=== PATIENT | female | born 1990 | race American Indian/Alaskan Native ===

== ENCOUNTER 2018-06-19 14:26 | Emergency (ER) | payer MEDICAID ==
--- NOTE | 2018-06-19 14:49 | Emergency Department Report ---
Chief Complaint: Seizure Stated Complaint: HEADACHE EXTREME/SEIZURES Time Seen by Provider: 06/19/18 14:46 - HPI History of Present Illness: HEADACHE AND SZ TODAY SZ AT 0400 2005 STARTED SZ- NOT SURE WHY SHE HAS THEM WAS NOT INCONT. NO N/V/D L TEMPORAL AREA NO FOCAL NEURO DEF RX NONE THC NO DRUGS NO ETOH PMH SZ LMP 1W AGO PSH NONE MSE COMPLETED AMBULATORY W NO FOCAL NEURO DEF MSE screening note: Focused history and physical exam performed. Due to findings the following was ordered: ED Disposition for MSE Condition: Stable
[2018-06-19 15:33] LABS: Bacteria,Urine 4+ /HPF (Negative); Bilirubin,Urine NEG (Negative); Blood,Urine NEG (Negative); Color,Urine Yellow (Yellow); Hyaline Casts,Urine 1 /LPF; Mucus,Urine 3+ /HPF; Protein,Urine <15 mg/dL mg/dL (Negative); Urobilinogen,Urine < 2.0 mg/dL (<2.0)
[2018-06-19 15:35] LABS: HCG Qualitative,Urine Negative (Negative)
[2018-06-19 15:55] LABS: Hematocrit 40.1 % (30.3-42.9); Hemoglobin 13.3 gm/dl (10.1-14.3); Mean Corpuscular HGB Conc 33 % (30-34); Mean Corpuscular Volume 92 fl (79-97); Platelet Count 275 K/mm3 (140-440); Red Blood Count 4.35 M/mm3 (3.65-5.03); Red Cell Distribution Width 13.4 % (13.2-15.2)
[2018-06-19] MEDS ORDERED: REGLAN IV ONE (16:04)
[2018-06-19] MEDS ORDERED: MACROBID PO ONE (16:04)
[2018-06-19] MEDS ORDERED: KEPPRA 500 MG/NS 0.82% 100 ML 500 MG/100 ML BAG IV ONE (16:04)
[2018-06-19 16:16] LABS: Alanine Aminotransferase 5 units/L (7-56); Albumin 4.2 g/dL (3.9-5); BUN/Creatinine Ratio 17; Blood Urea Nitrogen 10 mg/dL (7-17); Calcium 9.1 mg/dL (8.4-10.2); Hemolysis Index 4
--- NOTE | 2018-06-19 16:35 | Cat Scan Report ---
FINAL REPORT EXAM: CT HEAD/BRAIN WO CON HISTORY: Headache. Seizure. TECHNIQUE: CT of the Head without IV contrast. PRIORS: None currently available. FINDINGS: There is no evidence for acute ischemia. There is no hemorrhage. There is no midline shift. There is no hydrocephalus. There is no mass. Age appropriate izaguirre-white matter attenuation is noted. There is no calvarial fracture. The temporal bones demonstrate aerated mastoid air cells. The middle ears appear unremarkable. Paranasal sinuses are unremarkable. Globes are intact. IMPRESSION: No acute intracranial findings.
[2018-06-19] MEDS ORDERED: KEPPRA 500 MG in D5W 100 ML IV ONE (17:00)
--- NOTE | 2018-06-19 17:46 | Emergency Department Report ---
ED Seizure HPI - General Chief Complaint: Seizure Stated Complaint: HEADACHE EXTREME/SEIZURES Time Seen by Provider: 06/19/18 14:46 Source: patient Mode of arrival: Ambulatory Limitations: No Limitations - History of Present Illness Initial Comments: This is a 28-year-old female who was not known to this provider previously Patient reports a history of possible seizures, and presents to the emergency room today with complaint of seizures 2. Last seizure was one month ago, and then prior to that, had one seizure 4-5 months ago. Not currently taking any antiepileptic drug medications. Recently moved here from [place]. Complains of mild headache, which is throbbing, global, not sudden or thunderclap in nature, not maximal in intensity, not the worse headache of her life. There are no irritative or obstructive urinary symptoms. The patient also was of mild myalgias. There is no trauma that she is aware of. MD Complaint: seizure, possible seizure -: Sudden Description of Episode: loss of consciousness, tonic-clonic movement -: second(s) Seizure History: other Place: home Possible Precipitating Event: other (medication noncompliance) Associated Symptoms: other (headaches, denies other symptoms) - Related Data Previous Rx's Medication Instructions Recorded Last Taken Type Ibuprofen [Motrin] 400 mg PO Q8H PRN #20 tablet 06/19/18 Unknown Rx Nitrofurantoin Norman/M-Cryst 100 mg PO Q12HR #14 capsule 06/19/18 Unknown Rx [Macrobid CAP] levETIRAcetam [Keppra TAB] 500 mg PO BID #60 tablet 06/19/18 Unknown Rx Allergies Allergy/AdvReac Type Severity Reaction Status Date / Time No Known Allergies Allergy Verified 06/19/18 14:49 ED Review of Systems ROS: Stated complaint: HEADACHE EXTREME/SEIZURES Other details as noted in HPI Constitutional: malaise Eyes: denies: vision change ENT: denies: epistaxis Respiratory: denies: cough Cardiovascular: denies: chest pain Genitourinary: denies: dysuria Musculoskeletal: arthralgia, myalgia Skin: denies: lesions Neurological: headache. denies: weakness, numbness, paresthesias, confusion, abnormal gait Psychiatric: denies: anxiety ED Past Medical Hx - Past Medical History Previous Medical History?: Yes Hx Seizures: Yes - Surgical History Past Surgical History?: No - Social History Smoking Status: Never Smoker Substance Use Type: Marijuana - Medications Home Medications: Home Medications Medication Instructions Recorded Confirmed Last Taken Type Ibuprofen [Motrin] 400 mg PO Q8H PRN #20 tablet 06/19/18 Unknown Rx Nitrofurantoin Norman/M-Cryst 100 mg PO Q12HR #14 capsule 06/19/18 Unknown Rx [Macrobid CAP] levETIRAcetam [Keppra TAB] 500 mg PO BID #60 tablet 06/19/18 Unknown Rx ED Physical Exam - General Limitations: No Limitations General appearance: alert, in no apparent distress - Head Head exam: Present: atraumatic, normocephalic - Eye Eye exam: Present: normal appearance, EOMI. Absent: nystagmus - ENT ENT exam: Present: normal exam, normal orophraynx, mucous membranes moist, normal external ear exam - Neck Neck exam: Present: normal inspection, full ROM. Absent: tenderness, meningismus - Respiratory Respiratory exam: Present: normal lung sounds bilaterally. Absent: respiratory distress - Cardiovascular Cardiovascular Exam: Present: regular rate, normal rhythm, normal heart sounds. Absent: bradycardia, tachycardia, irregular rhythm, systolic murmur, diastolic murmur, rubs, gallop - GI/Abdominal GI/Abdominal exam: Present: soft. Absent: distended, tenderness, guarding, rebound, rigid, pulsatile mass - Extremities Exam Extremities exam: Present: normal inspection, full ROM, other (2+ pulses noted in the bilateral upper, lower extremities. Compartments soft. No long bony tenderness. The pelvis is stable.). Absent: pedal edema, joint swelling, calf tenderness - Back Exam Back exam: Present: normal inspection, full ROM. Absent: tenderness, CVA tenderness (R), paraspinal tenderness, vertebral tenderness - Neurological Exam Neurological exam: Present: alert, oriented X3, CN II-XII intact, normal gait, other (Extraocular movements intact. Tongue midline. No facial droop. Facial sensation intact to light touch in the V1, V2, V3 distribution bilaterally. 5 and 5 strength in 4 extremities.. Sensation is intact to light touch in 4 extremities.). Absent: motor sensory deficit - Psychiatric Psychiatric exam: Present: normal affect, normal mood - Skin Skin exam: Present: warm, dry, intact, normal color. Absent: rash ED Course Vital Signs 06/19/18 06/19/18 14:47 17:43 Temperature 97.4 F L 98.1 F Pulse Rate 83 77 Respiratory 18 18 Rate Blood Pressure 110/67 104/64 [Right] O2 Sat by Pulse 99 100 Oximetry ED Medical Decision Making - Lab Data Result diagrams: 06/19/18 15:29 06/19/18 15:29 Vital Signs 06/19/18 06/19/18 14:47 17:43 Temperature 97.4 F L 98.1 F Pulse Rate 83 77 Respiratory 18 18 Rate Blood Pressure 110/67 104/64 [Right] O2 Sat by Pulse 99 100 Oximetry Lab Results 06/19/18 06/19/18 06/19/18 Range/Units 15:18 15:29 15:29 WBC 10.6 (4.5-11.0) K/mm3 RBC 4.35 (3.65-5.03) M/mm3 Hgb 13.3 (10.1-14.3) gm/dl Hct 40.1 (30.3-42.9) % MCV 92 (79-97) fl MCH 31 (28-32) pg MCHC 33 (30-34) % RDW 13.4 (13.2-15.2) % Plt Count 275 (140-440) K/mm3 Sodium 138 (137-145) mmol/L Potassium 3.6 (3.6-5.0) mmol/L Chloride 99.3 (98-107) mmol/L Carbon Dioxide 28 (22-30) mmol/L Anion Gap 14 mmol/L BUN 10 (7-17) mg/dL Creatinine 0.6 L (0.7-1.2) mg/dL Estimated GFR > 60 ml/min BUN/Creatinine Ratio 17 % Glucose 92 (65-100) mg/dL Calcium 9.1 (8.4-10.2) mg/dL Total Bilirubin 0.30 (0.1-1.2) mg/dL AST 13 (5-40) units/L ALT 5 L (7-56) units/L Alkaline Phosphatase 65 (35-129) units/L Total Creatine Kinase 91 (30-135) units/L Total Protein 7.1 (6.3-8.2) g/dL Albumin 4.2 (3.9-5) g/dL Albumin/Globulin Ratio 1.4 % HCG, Quant (0-4) mIU/mL Urine Color Yellow (Yellow) Urine Turbidity Slightly-cloudy (Clear) Urine pH 6.0 (5.0-7.0) Ur Specific Sidney 1.020 (1.003-1.030) Urine Protein <15 mg/dl (Negative) mg/dL Urine Glucose (UA) Neg (Negative) mg/dL Urine Ketones Neg (Negative) mg/dL Urine Blood Neg (Negative) Urine Nitrite Neg (Negative) Urine Bilirubin Neg (Negative) Urine Urobilinogen < 2.0 (<2.0) mg/dL Ur Leukocyte Esterase Tr (Negative) Urine WBC (Auto) 10.0 H (0.0-6.0) /HPF Urine RBC (Auto) 6.0 (0.0-6.0) /HPF U Epithel Cells (Auto) 9.0 (0-13.0) /HPF Urine Bacteria (Auto) 4+ (Negative) /HPF Hyaline Casts 1 /LPF Urine Mucus 3+ /HPF Urine HCG, Qual Negative (Negative) Salicylates (2.8-20.0) mg/dL Acetaminophen (10.0-30.0) ug/mL Valproic Acid (50-100) ug/mL Plasma/Serum Alcohol (0-0.07) % 06/19/18 06/19/18 06/19/18 Range/Units 15:29 15:29 15:29 WBC (4.5-11.0) K/mm3 RBC (3.65-5.03) M/mm3 Hgb (10.1-14.3) gm/dl Hct (30.3-42.9) % MCV (79-97) fl MCH (28-32) pg MCHC (30-34) % RDW (13.2-15.2) % Plt Count (140-440) K/mm3 Sodium (137-145) mmol/L Potassium (3.6-5.0) mmol/L Chloride (98-107) mmol/L Carbon Dioxide (22-30) mmol/L Anion Gap mmol/L BUN (7-17) mg/dL Creatinine (0.7-1.2) mg/dL Estimated GFR ml/min BUN/Creatinine Ratio % Glucose (65-100) mg/dL Calcium (8.4-10.2) mg/dL Total Bilirubin (0.1-1.2) mg/dL AST (5-40) units/L ALT (7-56) units/L Alkaline Phosphatase (35-129) units/L Total Creatine Kinase (30-135) units/L Total Protein (6.3-8.2) g/dL Albumin (3.9-5) g/dL Albumin/Globulin Ratio % HCG, Quant 0.552 (0-4) mIU/mL Urine Color (Yellow) Urine Turbidity (Clear) Urine pH (5.0-7.0) Ur Specific Sidney (1.003-1.030) Urine Protein (Negative) mg/dL Urine Glucose (UA) (Negative) mg/dL Urine Ketones (Negative) mg/dL Urine Blood (Negative) Urine Nitrite (Negative) Urine Bilirubin (Negative) Urine Urobilinogen (<2.0) mg/dL Ur Leukocyte Esterase (Negative) Urine WBC (Auto) (0.0-6.0) /HPF Urine RBC (Auto) (0.0-6.0) /HPF U Epithel Cells (Auto) (0-13.0) /HPF Urine Bacteria (Auto) (Negative) /HPF Hyaline Casts /LPF Urine Mucus /HPF Urine HCG, Qual (Negative) Salicylates < 0.3 L (2.8-20.0) mg/dL Acetaminophen < 5.0 L (10.0-30.0) ug/mL Valproic Acid < 2.8 L (50-100) ug/mL Plasma/Serum Alcohol (0-0.07) % 06/19/18 Range/Units 15:29 WBC (4.5-11.0) K/mm3 RBC (3.65-5.03) M/mm3 Hgb (10.1-14.3) gm/dl Hct (30.3-42.9) % MCV (79-97) fl MCH (28-32) pg MCHC (30-34) % RDW (13.2-15.2) % Plt Count (140-440) K/mm3 Sodium (137-145) mmol/L Potassium (3.6-5.0) mmol/L Chloride (98-107) mmol/L Carbon Dioxide (22-30) mmol/L Anion Gap mmol/L BUN (7-17) mg/dL Creatinine (0.7-1.2) mg/dL Estimated GFR ml/min BUN/Creatinine Ratio % Glucose (65-100) mg/dL Calcium (8.4-10.2) mg/dL Total Bilirubin (0.1-1.2) mg/dL AST (5-40) units/L ALT (7-56) units/L Alkaline Phosphatase (35-129) units/L Total Creatine Kinase (30-135) units/L Total Protein (6.3-8.2) g/dL Albumin (3.9-5) g/dL Albumin/Globulin Ratio % HCG, Quant (0-4) mIU/mL Urine Color (Yellow) Urine Turbidity (Clear) Urine pH (5.0-7.0) Ur Specific Sidney (1.003-1.030) Urine Protein (Negative) mg/dL Urine Glucose (UA) (Negative) mg/dL Urine Ketones (Negative) mg/dL Urine Blood (Negative) Urine Nitrite (Negative) Urine Bilirubin (Negative) Urine Urobilinogen (<2.0) mg/dL Ur Leukocyte Esterase (Negative) Urine WBC (Auto) (0.0-6.0) /HPF Urine RBC (Auto) (0.0-6.0) /HPF U Epithel Cells (Auto) (0-13.0) /HPF Urine Bacteria (Auto) (Negative) /HPF Hyaline Casts /LPF Urine Mucus /HPF Urine HCG, Qual (Negative) Salicylates (2.8-20.0) mg/dL Acetaminophen (10.0-30.0) ug/mL Valproic Acid (50-100) ug/mL Plasma/Serum Alcohol < 0.01 (0-0.07) % - Radiology Data Radiology results: report reviewed, image reviewed Noncontrast CT scan of the brain is negative for acute disease. - Medical Decision Making Differential diagnosis, including but not limited to: Breakthrough seizure, medication noncompliance, migraine headache, tension headache, cluster headache, structural intracranial abnormality, asymptomatic bacteriuria Assessment and plan: 28-year-old female, recently moved here from [place], not currently on antiepileptic drug medication, with possible breakthrough seizure. Patient is observed in the emergency room for 4 hours, is clinically sober, walking with a steady gait, and in no acute distress. She is loaded with Keppra, and does not have repeat convulsive events. Screening laboratory studies unremarkable, the patient is clinically sober, urinalysis suggestive of asymptomatic bacteriuria. Patient was given instructions and showed how to download the good Rx application on her smart phone device, and she was instructed on how to use this application to find affordable prescriptions. The patient verbalizes understanding. Patient will be discharged with Laura Gutierrez, instructions to not drive or operate motor vehicles for the next 6 months. Critical care attestation.: If time is entered above; I have spent that time in minutes in the direct care of this critically ill patient, excluding procedure time. ED Disposition Clinical Impression: History of seizure, ASB (asymptomatic bacteriuria) Disposition: - TO HOME OR SELFCARE Is pt being admited?: No Does the pt Need Aspirin: No Condition: Stable Instructions: Urinary Tract Infection in Women (ED), Recurrent Seizures Adult (ED) Additional Instructions: Follow-up with her primary care doctor or neurology doctor within the next 7-[address] or operate motor vehicles. Take the medications as directed. Return to the emergency room right away with recurrent seizure, projectile vomiting, change in mental status, new, worsening or different sy mptoms. Referrals: GEO LOPEZ MD [Referring] - 3-5 Days POOJA PURVIS MD [Staff Physician] - 3-5 Days EUNICE LORENZ MD [Staff Physician] - 3-5 Days [facility] [Provider Group] - 3-5 Days
[2018-06-19 19:24] VITALS: BP 112/69
== END 2018-06-19 19:28 | disposition home or self-care (01) ==
LOC: ED 14:26
DX: R82.71 Bacteriuria (principal); F12.10 Cannabis abuse, uncomplicated
CPT/HCPCS: 36415; 70450; 80053; 80164; 81001; 81025; 82550; 84702; 85027; 96374; 96375; 99284; G0480; J1953; J2765; 80320

== ENCOUNTER 2020-08-30 09:36 | Emergency (ER) | payer MEDICAID ==
[2020-08-30 09:42] VITALS: BP 110/48
--- NOTE | 2020-08-30 10:47 | Emergency Department Report ---
ED Laceration HPI - HPI Chief Complaint: Wound/Laceration Stated Complaint: RT EAR INJURY Time Seen by Provider: 08/30/20 10:33 Occurred When: Today Severity: mild Tetanus Status: Up to Date (2019) Laceration Symptoms: Yes Pain, No Foreign Body Sensation, No Numbness, No Weakness Other History: This is a 30-year-old female nontoxic, well nourished in appearance, no acute signs of distress presents to the ED with c/o of right posterior earlobe laceration that occurred earlier today [employer]. Patient stated earring caused the lac. Patient denies decreased sensation or range of motion. Patient stated bleeding is under control. Denies any numbness, tingling, fever, chills, nausea, vomiting, chest pain, shortness of breath, headache or stiff n iglesia. Patient denies any allergies to significant past medical history. Patient is that she is UTD with tetanus in 2019. ED Review of Systems ROS: Stated complaint: RT EAR INJURY Other details as noted in HPI Comment: All other systems reviewed and negative Constitutional: denies: chills, fever Eyes: denies: eye pain, eye discharge, vision change ENT: denies: ear pain, throat pain Respiratory: denies: cough, shortness of breath, wheezing Cardiovascular: denies: chest pain, palpitations Endocrine: no symptoms reported Gastrointestinal: denies: abdominal pain, nausea, diarrhea Genitourinary: denies: urgency, dysuria, discharge Musculoskeletal: denies: back pain, joint swelling, arthralgia Skin: denies: rash, lesions Neurological: denies: headache, weakness, paresthesias Psychiatric: denies: anxiety, depression Hematological/Lymphatic: denies: easy bleeding, easy bruising ED Past Medical Hx - Past Medical History Previous Medical History?: Yes Hx Seizures: Yes - Surgical History Past Surgical History?: No - Social History Smoking Status: Never Smoker Substance Use Type: None - Medications Home Medications: Home Medications Medication Instructions Recorded Confirmed Last Taken Type Ibuprofen [Motrin] 400 mg PO Q8H PRN #20 tablet 06/19/18 Unknown Rx Nitrofurantoin Mcintosh/M-Cryst 100 mg PO Q12HR #14 capsule 06/19/18 Unknown Rx [Macrobid CAP] levETIRAcetam [Keppra TAB] 500 mg PO BID #60 tablet 06/19/18 Unknown Rx Sulfamethoxazole/Trimethoprim 1 each PO BID #14 tablet 08/30/20 Unknown Rx [Bactrim DS TAB] Laceration Physical Exam - Exam General: Vital signs noted. No distress. Alert and acting appropriately. Wound Length (cm): 1 (right posterior earlobe superficial) Laceration Exam: Yes Normal Distal CMS, No Foreign Body, No Exposed Tendon, Vessel, or Nerve, No Tendon Injury ED Course Vital Signs 08/30/20 09:38 Temperature 98.2 F Pulse Rate 73 Respiratory 18 Rate Blood Pressure 110/48 O2 Sat by Pulse 100 Oximetry - Reevaluation(s) Reevaluation #1: 08/30/20 10:45 Patient is speaking in full sentences with no signs of distress noted. - Laceration /Wound Repair Right Ear Wound Location: face (Right earlobe posterior superficial) Wound Length (cm): 1 Wound's Depth, Shape: superficial Wound Explored: clean Irrigated w/ Saline (ccs): 40 Betadine Prep?: Yes Wound Repaired With: Dermabond Layer Closure?: No Sterile Dressing Applied?: Yes Progress: Under sterile field, I used Betadine to clean the area. I then used 40 mL of normal saline to flush the area. I then used Dermabond to approximate the superficial 1 cm laceration to posterior right earlobe. I then applied a sterile 4 x 4 with tape. Minimal bleeding noted but is under control. Patient tolerated procedure well with no signs of distress. ED Medical Decision Making - Medical Decision Making This is a 30-year-old female that presents with laceration. Patient is stable and was examined by me. The laceration Dermabond has been applied and and patient tolerated well. A sterile dressing has been applied. Patient was educated on proper wound care. Patient is discharged with Bactrim. Patient was instructed to refer to Follow-up with a primary care doctor in 3-5 days or if symptoms worsen and continue return to emergency room as soon as possible. At time of discharge, the patient does not seem toxic or ill in appearance. No acute signs of distress noted. Patient agrees to discharge treatment plan of care. No further questions noted by the patient. Critical care attestation.: If time is entered above; I have spent that time in minutes in the direct care of this critically ill patient, excluding procedure time. ED Disposition Clinical Impression: Laceration of earlobe Qualifiers: Encounter type: initial encounter Laterality: right Qualified Code(s): S01.311A - Laceration without foreign body of right ear, initial encounter Disposition: - TO HOME OR SELFCARE Is pt being admited?: No Does the pt Need Aspirin: No Condition: Stable Instructions: Laceration Care, Adult, Sutures, [place], or Adhesive Wound Closure Additional Instructions: Follow-up with a primary care doctor in 3-5 days or if symptoms worsen and continue return to emergency room as soon as possible. Prescriptions: Sulfamethoxazole/Trimethoprim [Bactrim DS TAB] 1 each PO BID #14 tablet Referrals: PRIMARY CAREMD [Referring] - 3-5 Days SALOMON MURILLO MD [Staff Physician] - 3-5 Days Forms: Work/School Release Form(ED) Time of Disposition: 10:47
== END 2020-08-30 11:03 | disposition home or self-care (01) ==
LOC: ED 09:36
DX: S01.311A Laceration without foreign body of right ear, initial encounter (principal); R56.9 Unspecified convulsions; Z79.1 Long term (current) use of non-steroidal anti-inflammatories (NSAID); Z79.899 Other long term (current) drug therapy; X58.XXXA Exposure to other specified factors, initial encounter; Y93.89 Activity, other specified; Y92.89 Other specified places as the place of occurrence of the external cause; Y99.8 Other external cause status
CPT/HCPCS: 99282